=== PATIENT | female | born 1975 | race African-American/Black ===

== ENCOUNTER 2019-09-15 15:48 | Emergency (ER) | payer OTHER ==
[2019-09-15 16:07] VITALS: BP 120/66
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
== END 2019-09-15 18:42 | disposition home or self-care (01) ==
LOC: ED 15:48
DX: M54.2 Cervicalgia (principal); Z79.899 Other long term (current) drug therapy; Z90.710 Acquired absence of both cervix and uterus; V89.2XXA Person injured in unspecified motor-vehicle accident, traffic, initial encounter; Y93.89 Activity, other specified; Y92.488 Other paved roadways as the place of occurrence of the external cause; Y99.8 Other external cause status
CPT/HCPCS: 72040; 99283

== ENCOUNTER 2020-04-20 09:30 | Outpatient (CLI) | payer OTHER ==
--- NOTE | 2020-04-20 12:26 | Ultrasound Report ---
LIMITED RUQ ABDOMINAL ULTRASOUND INDICATION: GALLSTONES,RIGHT UPPER QUADRANT PAIN. COMPARISON: No relevant prior imaging study available. FINDINGS: Pancreas: Visualized portions show no significant abnormality. Abdominal Aorta: Obscured. IVC: Obscured. Liver: The liver measures 16.5 cm in length. The liver is enlarged and echogenic consistent with dif fuse fatty infiltration.. Normal hepatopedal blood flow in the main portal vein. Gallbladder: No significant abnormality. Bile ducts: No significant abnormality. Common bile duct measures 1.1 mm. Right kidney: No significant abnormality visualized. Free fluid: None. Additional Findings: None. IMPRESSION: Mild hepatomegaly with diffuse fatty infiltration. No evidence for cholelithiasis.. Signer Name: Tommy Vincent Jr, MD Signed: 04/20/2020 12:21 PM Workstation Name: [id number]
== END 2020-04-20 09:31 | disposition home or self-care (01) ==
LOC: US 09:30
PROVIDERS: ATTEND Nurse Practitioner Family
DX: K76.0 Fatty (change of) liver, not elsewhere classified (principal); R16.1 Splenomegaly, not elsewhere classified; K80.20 Calculus of gallbladder without cholecystitis without obstruction
CPT/HCPCS: 76705